=== PATIENT | female | born 1990 | race Caucasian/White ===

== ENCOUNTER 2023-10-14 12:10 | Inpatient (IN) ==
[~2023-10-14 12:10] MED LIST: Lactated Ringers 1000 ml BAG 1,000 ML IV ONE; Lidocaine 1% VIAL 10 MG/ML 30 ML VIAL INJ PRN
[2023-10-14 13:57] LABS: ABS Lymphocytes 1.9 10^3/uL (1.0-4.8); ABS Monocytes 0.3 10^3/uL (0.0-0.9); ABS Neutrophils 6.1 10^3/uL (1.5-7.6); ABS Nucleated RBC 0.01 10^3/ul; Eosinophil % 0.3 %; Hematocrit 35.8 % (35-45); Hemoglobin 12.1 g/dL (11.5-14.3); Lymphocyte % 22.2 %; Mean Corpuscular Hemoglobin 31.9 pg (27-33); Mean Corpuscular Hgb Conc 33.7 g/dL (31-36); Mean Corpuscular Volume 94.7 fL (80-97); Mean Platelet Volume 10.3 fL (7.5-11.2); Nucleated Red Blood Cells % 0.1 %/100WBC (0.0-0.8); Platelet Count 138 10^3/uL (150-450); Red Blood Count 3.78 10^6/uL (3.63-4.92); Red Cell Distribution Width 15.2 % (12-17); White Blood Count 8.4 10^3/uL (3.8-11.8)
[2023-10-14] MEDS: Lactated Ringers 1000 ml BAG 1,000 ML IV SCH (14:08)
[2023-10-14] MEDS: Oxytocin in LR 20,000 MILLI.UNIT/1,000 ML BAG IV SCH (14:08)
[2023-10-14 14:13] LABS: Urine Benzodiazepine Screen None Detected (None Detect); Urine Cannabinoids Screen None Detected (None Detect); Urine Opiates Screen None Detected (None Detect)
[2023-10-14 14:25] LABS: Albumin 3.3 g/dL (3.2-5.2); Albumin/Globulin Ratio 1.1 (1-3); Calcium 8.6 mg/dL (8.6-10.3); Creatinine, Serum 0.61 mg/dL (0.51-0.95); Globulin 2.9 g/dL (2-4); Potassium 4.1 mmol/L (3.5-5.0); Total Bilirubin 0.4 mg/dL (0.2-1.0); Total Protein 6.2 g/dL (6.4-8.9); Uric Acid 4.7 mg/dL (2.3-6.6)
[2023-10-14 15:30] LABS: Influenza A Molecular Negative (Negative); Influenza B Molecular Negative (Negative)
[2023-10-14 17:01] LABS: Urine Creatinine Concentration 91.03 mg/dL (20.00-320.00); Urine TP Creat Ratio 0.34 mg/mg
[2023-10-14] MEDS ORDERED: Dibucaine 1% OINT 28.35 GM TUBE PR PRN (22:19)
[2023-10-14] MEDS ORDERED: Witch Hazel PAD JAR TOPICAL PRN (22:19)
[2023-10-14] MEDS ORDERED: Oxytocin in LR 20,000 MILLI.UNIT/1,000 ML BAG IV SCH (22:20)
[2023-10-14] MEDS ORDERED: Lactated Ringers 1000 ml BAG 1,000 ML IV SCH (23:00)
[2023-10-15 04:05] VITALS: BP 111/49
[2023-10-15 06:22] LABS: ABS Lymphocytes 2.4 10^3/uL (1.0-4.8); ABS Monocytes 0.4 10^3/uL (0.0-0.9); ABS Neutrophils 7.9 10^3/uL (1.5-7.6); ABS Nucleated RBC 0.01 10^3/ul; Eosinophil % 0.3 %; Hematocrit 32.8 % (35-45); Hemoglobin 11.3 g/dL (11.5-14.3); Mean Corpuscular Hemoglobin 32.2 pg (27-33); Mean Corpuscular Hgb Conc 34.4 g/dL (31-36); Mean Corpuscular Volume 93.5 fL (80-97); Mean Platelet Volume 10.6 fL (7.5-11.2); Nucleated Red Blood Cells % 0.1 %/100WBC (0.0-0.8); Platelet Count 126 10^3/uL (150-450); Red Blood Count 3.51 10^6/uL (3.63-4.92); Red Cell Distribution Width 15.2 % (12-17); White Blood Count 10.7 10^3/uL (3.8-11.8)
[2023-10-15] MEDS: medroxyPROGESTERone ACETATE 150 MG/ML VIAL IM ONE (09:11)
== END 2023-10-15 09:30 | disposition home or self-care (01) | DRG 807 ==
LOC: MCHOBOUT 12:10 → MCHOB 12:19
PROVIDERS: ADMIT Midwife; ATTEND Midwife